=== PATIENT | female | born 1965 | race Caucasian/White ===

== ENCOUNTER → 2016-08-31 | Outpatient (CLI) | payer OTHER ==
[~2016-08-31] MED LIST: ASPI-496 PO; CALC-116 PO; KRIL1CAP23 PO; LACT1CAP40 PO; MAGN100T6 PO; METH10TA6 PO; METH5TAB6 PO; MULT-82 PO; MV-M1TAB16 PO
[2016-08-31 12:18] LABS: HEMOGLOBIN 14.3 g/dL (11.7-16.4)
[2016-08-31 12:23] LABS: ASPARTATE AMINO TRANSFERASE 29 U/L (15-37); BLOOD UREA NITROGEN 22 mg/dL (7-18)
[2016-09-01 14:06] LABS: THYROGLOBULIN AB <1.0 IU/mL (0.0-0.9); THYROGLOBULIN QUANT 228.6 ng/mL (1.5-38.5)
== END | disposition home or self-care (01) ==
LOC: STAR 10:43
PROVIDERS: ATTEND Surgery
DX: Z01.818 Encounter for other preprocedural examination (principal)
CPT/HCPCS: 36415; 80053; 84432; 84439; 84443; 84480; 85025; 86800; 93005